=== PATIENT | male | born 1935 | race Caucasian/White ===

== ENCOUNTER 2021-12-02 14:51 | Emergency (ER) | payer MEDICARE, OTHER ==
[~2021-12-02] VITALS: Ht 175 cm; Wt 77.0 kg
--- NOTE | 2021-12-02 15:01 | ED Neurological Problem ---
General Stated Complaint: FALL Source: EMS Exam Limitations: clinical condition History of Present Illness Date Seen by Provider: Dec 02, 2021 Time Seen by Provider: 14:52 Initial Comments 84-year-old male with unknown past medical history coming in via EMS from his home which is an independent living geriatric area in which she was in the [facility] area after he fell. EMS reports there were no signs of trauma. He was lying down on a pillow on arrival and they had to completely assist him. He would not follow commands for them, would not speak, and had some right-sided facial droop. Reportedly, he normally walks around, talks, and is relatively normal. Unsure of any medications or allergies. Further elements of the history and physical were unable to be obtained. They had a family member number, Radha Finley, at [phone]. Glucose >100 for EMS with blood pressure around 120 systolic. Allergies and Home Medications Allergies Coded Allergies: No Allergy Information Available (Unverified , 12/02/21) Patient Home Medication List Home Medication List Reviewed: Yes Review of Systems Review of Systems Constitutional: no symptoms reported patient aphasic, unable to obtain ROS Past Gavqajc-Ltinrw-Nnvdqj Hx Past Medical History Surgery/Hospitalization HX: unknown but has linear scar on chest where a CABG could have been done Physical Exam Vital Signs Vital Signs - First Documented 12/02/21 14:55 Temp 35.8 Pulse 84 Resp 18 B/P (MAP) 124/47 (72) Pulse Ox 94 O2 Delivery Room Air O2 Flow Rate 2.00 Capillary Refill : Height, Weight, BMI Height: '" Weight: lbs. oz. kg; BMI Method: General Appearance: WD/WN, other (alert, moving left side, not following commands, groans when asked questions) HEENT: PERRL/EOMI, pharynx normal Neck: non-tender, other (c collar in place) Respiratory: chest non-tender, lungs clear, normal breath sounds, no respiratory distress, no accessory muscle use Cardiovascular: no edema, no murmur, irregularly irregular Gastrointestinal: normal bowel sounds, non tender, soft; No distended, No guarding, No rebound Back: normal inspection, no CVA tenderness Extremities: normal range of motion (passive on the right, active on the left), non-tender, normal inspection, no pedal edema, no calf tenderness Neurologic/Psychiatric: alert, facial droop (on right) Motor/Sensory: weak motor strength RUE, weak motor strength RLE Skin: normal color, warm/dry Lymphatic: no adenopathy Stroke Onset of Symptoms Date of Onset of Symptoms: Dec 02, 2021 Time of Symptom Onset: 12:00 Onset of Symptoms: Yes NIH Stroke Scale Assessment Select: Post CT Level of Consciousness: 0=Alert (0), Level of Consciousness- Questions: 2=Answer neither question (2), LOC Commands: 2=Performs neither task (2), Gaze: Partial Gaze Palsy (1), Visual [place]: 0=No visual loss (0), Facial Movement (Facial Paresis): 2=Partial paralysis (2), Motor Function- Arms Right: 3=No effort/gravity (3), Motor Function-Arms Left: 0=No drift (0), Motor Function-Legs Right: 3=No effort/gravity (3), Motor Function-Legs Left: 0=No drift (0), Limb Ataxia: 1=Present in one limb (1), Sensory: 1=Mild to Moderate loss (1), Best Language: 2=Severe aphasia (2), Dysarthria: 2=Severe dysarthria (2), Extinction & Inattention: 1=Visual,tactile,auditory (1), Total: 20 Stroke Thrombolytic Exclusion Age 18 or Over: Yes Acute intenal hemorrhage: No History of CVA: No Uncontrolled Coagulation Defec: No Intracranial Hemorrhage: No Severe Hypertension: No GI or Bleed: No Subarachnoid Hemorrhage: No Intracranial Neoplasm/Aneurysm: No Oral Anticoagulants: No Surgery or Trauma: No Puncture of Non-Compressible V: No Recent CPR: No Diabetic Hemorrhagic Retinopat: No Organ Biopsy: No Recent Obstetric Delivery: No Glucose: No Significant Hepatic Dysfunctio: No NIH Stoke Scale >22: No Bacterial Endocarditis: No Pericarditis: No Improving Symptoms: No Platelets: No TPA Contraindication: No IV - TPa Received IV - TPa Procedure Performed?: Yes IV - TPa Date: Dec 02, 2021 IV - TPa Time: 15:53 Progress/Results/Core Measures Results/Orders Lab Results Laboratory Tests Test 12/02/21 15:00 12/02/21 15:55 Range/Units White Blood Count 9.4 4.3-11.0 10^3/uL Red Blood Count 4.17 L 4.30-5.52 10^6/uL Hemoglobin 12.6 L 13.3-17.7 g/dL Hematocrit 38 L 40-54 % Mean Corpuscular Volume 92 80-99 fL Mean Corpuscular Hemoglobin 30 25-34 pg Mean Corpuscular Hemoglobin Concent 33 32-36 g/dL Red Cell Distribution Width 13.7 10.0-14.5 % Platelet Count 203 130-400 10^3/uL Mean Platelet Volume 9.6 9.0-12.2 fL Immature Granulocyte % (Auto) 0 % Neutrophils (%) (Auto) 62 42-75 % Lymphocytes (%) (Auto) 27 12-44 % Monocytes (%) (Auto) 8 0-12 % Eosinophils (%) (Auto) 2 0-10 % Basophils (%) (Auto) 0 0-10 % Neutrophils # (Auto) 5.8 1.8-7.8 10^3/uL Lymphocytes # (Auto) 2.6 1.0-4.0 10^3/uL Monocytes # (Auto) 0.8 0.0-1.0 10^3/uL Eosinophils # (Auto) 0.2 0.0-0.3 10^3/uL Basophils # (Auto) 0.0 0.0-0.1 10^3/uL Immature Granulocyte # (Auto) 0.0 0.0-0.1 10^3/uL Prothrombin Time 14.3 12.2-14.7 SEC INR Comment 1.1 0.8-1.4 Activated Partial Thromboplast Time 29 24-35 SEC Sodium Level 137 135-145 MMOL/L Potassium Level 4.5 3.6-5.0 MMOL/L Chloride Level 99 98-107 MMOL/L Carbon Dioxide Level 24 21-32 MMOL/L Anion Gap 14 5-14 MMOL/L Blood Urea Nitrogen 21 H 7-18 MG/DL Creatinine 1.12 0.60-1.30 MG/DL Estimat Glomerular Filtration Rate 64 BUN/Creatinine Ratio 19 Glucose Level 110 H 70-105 MG/DL Calcium Level 9.6 8.5-10.1 MG/DL Corrected Calcium 9.7 8.5-10.1 MG/DL Total Bilirubin 0.4 0.1-1.0 MG/DL Aspartate Amino Transf (AST/SGOT) 19 5-34 U/L Alanine Aminotransferase (ALT/SGPT) 13 0-55 U/L Alkaline Phosphatase 78 40-136 U/L Troponin I < 0.30 <0.30 NG/ML Total Protein 6.7 6.4-8.2 GM/DL Albumin 3.9 3.2-4.5 GM/DL Urine Color YELLOW Urine Clarity CLEAR Urine pH 7.0 5-9 Urine Specific [place] 1.010 L 1.016-1.022 Urine Protein NEGATIVE NEGATIVE Urine Glucose (UA) NEGATIVE NEGATIVE Urine Ketones NEGATIVE NEGATIVE Urine Nitrite NEGATIVE NEGATIVE Urine Bilirubin NEGATIVE NEGATIVE Urine Urobilinogen 0.2 < = 1.0 MG/DL Urine Leukocyte Esterase NEGATIVE NEGATIVE Urine RBC (Auto) TRACE-I H NEGATIVE Urine RBC 5-10 H /HPF Urine WBC RARE /HPF Urine Squamous Epithelial Cells RARE /HPF Urine Crystals NONE /LPF Urine Bacteria TRACE /HPF Urine Casts NONE /LPF Urine Mucus NEGATIVE /LPF Urine Culture Indicated NO My Orders Orders - DISHA CHANDLER MD Cbc With Automated Diff (12/02/21 14:54) Protime With Inr (12/02/21 14:54) Partial Thromboplastin Time (12/02/21 14:54) Comprehensive Metabolic Panel (12/02/21 14:54) Troponin I Fs (12/02/21 14:54) Ua Culture If Indicated (12/02/21 14:54) Chest 1 View Ap/Pa Only (12/02/21 14:54) Ekg Tracing (12/02/21 14:54) Accucheck Stat ONCE (12/02/21 14:54) Ed Iv/Invasive Line Start (12/02/21 14:54) Ed Iv/Invasive Line Start (12/02/21 14:54) Vital Signs Stroke Patient Q15M (12/02/21 14:54) Ct Head Wo-R/O Stroke (12/02/21 14:54) O2 (12/02/21 14:54) Intake & Output ,, (12/02/21 14:54) Monitor-Rhythm Ecg Trace Only (12/02/21 14:54) Dysphagia Screening Tool Q10MX1 (12/02/21 14:54) Ct Cervical Spine Wo (12/02/21 15:01) Tenecteplase (Tnkase) (12/02/21 15:40) Vital Signs Stroke Patient Q15M (12/02/21 15:42) Dysphagia Screening Tool Q10MX1 (12/02/21 15:42) Post Thrombolytic Adminstratio (12/02/21 15:42) Tenecteplase (Tnkase) (12/02/21 15:45) Medications Given in ED Current Medications Medications Dose Ordered Sig/[place] Route Start Time Stop Time Status Last Admin Dose Admin Tenecteplase 50 mg STK-MED ONCE IV 12/02/21 15:40 12/02/21 15:43 DC 12/02/21 15:53 50 MG Vital Signs/I&O 12/02/21 12/02/21 12/02/21 12/02/21 14:55 14:55 15:53 16:38 Temp 35.8 Pulse 84 86 76 Resp 18 18 B/P (MAP) 124/47 (72) 110/65 117/51 Pulse Ox 94 94 93 O2 Delivery Room Air Nasal Cannula Nasal Cannula O2 Flow Rate 2.00 2.00 Progress Progress Note : Progress Note 84-year-old male with above history coming in after he was found down. On arrival here blood pressure 120s over 80s. The patient was severely aphasic, left-sided gaze preference, would not move his right side at all, did not like his right toe, NIH initially conservatively was 23 (scored higher since he could not answer questions regarding sensation and impossible to tell ataxia due to severe weakness). We were unable to find out if he was on any blood thinners or had contraindications to tPA initially. Eventually got a hold of a family member that we went through the contraindications, and he has not had any recent surgery, no intracranial injury or bleeding/mass, no recent GI bleed, and no other contraindications. Essentially there were no contraindications other than his age and his initial NIH being >22. On repeat testing his NIH was 20. We then got a hold of where he lives and he was last seen normal at 12:00. I personally called stroke, and discussed the case with Dr. Reta Bojorquez who recommend giving the tenecteplase that we have here. I consented family verbally given we were running close to time and needed to get the medication and quickly. The patient will be transferred to for potential thrombectomy via helicopter. Patient began improving rapidly after tenecteplase infusion. Started lifting right arm, moving left foot some but not quite against gravity, started talking but is still very dysarthric and difficulty to understand. Facial droop and gaze preference also improved. Of note, the patient had incidental findings on his CT of a left parotid mass and calcification on his thyroid. I recommended ENT follow up as well as outpatient ultrasound of his thyroid and his family voiced understanding to this. Initial ECG Impression Date: Dec 02, 2021 Initial ECG Impression Time: 15:15 Initial ECG Rate: 83 Initial ECG Rhythm: A Fib/Flutter Comment Wide QRS with a right bundle branch block, no significant ST elevation, no prior EKG to compare to Diagnostic Imaging Diagonstic Imaging: Xray (chest), CT (head and c spine) Comments ADMIT DATE: 12/02/21/ER FS Draft Date of Exam:12/02/21 CHEST 1 VIEW AP/PA ONLY INDICATION: Fall. Injury. COMPARISON: None. FINDINGS: A single frontal radiographic view of the chest was obtained and demonstrates mild enlargement of the cardiac silhouette. The pulmonary vasculature is within normal limits. The lungs show low inspiratory volumes but are otherwise clear. There is no large effusion or pneumothorax. The osseous structures show no gross acute abnormalities. IMPRESSION: Borderline enlargement of the cardiac silhouette which may be exaggerated by portable technique. There is otherwise no evidence of failure or focal infiltrate. Dictated on workstation # [id number] Dict: 12/02/21 1509 Trans: 12/02/21 1512 [id number] Interpreted by: MARISA DEL CASTILLO MD Electronically signed by: [facility] [place], [place] NAME: KILO CASTANO [facility] REC#: [id number] PT STATUS: REG ER : 02/07/1937 PHYSICIAN: DISHA CHANDLER MD ADMIT DATE: 12/02/21/ER FS Draft Date of Exam:12/02/21 CT HEAD WO-R/O STROKE CLINICAL INDICATION: Patient with right-sided paralysis. EXAM: Axial CT scan of the brain performed without IV contrast. High-resolution axial CT brain images with sagittal and coronal reformations were also created. Auto Exposure Controls were utilized during the CT exam to meet ALARA standards for radiation dose reduction. COMPARISON: None. FINDINGS: There is no evidence of acute cerebral infarct, intracranial hemorrhage, or gross mass effect. There is atherosclerotic disease involving the [place] vessels. There is no definite dense vessel sign. There is diffuse brain parenchymal volume loss. There is diffuse patchy and confluent areas of low-attenuation white matter changes involving both cerebral hemispheres, bilateral basal ganglia regions, bilateral external capsule regions, and periventricular regions, likely representing chronic small vessel ischemic disease and leukoaraiosis. There are small chronic infarcts involving the left basal ganglia region and possibly right basal ganglia region. There is normal butt-white matter distinction. There is no significant midline shift or herniation. There is no evidence of hydrocephalus. The basal cisterns are unremarkable. There is a mass in the superficial portion of the left parotid gland which measures 10 mm x 9 mm in greatest axial dimension x 17 mm in craniocaudal dimension. Otherwise, the skull, extracranial soft tissue, and orbits are unremarkable. The paranasal sinuses are unremarkable. Temporal bones show no significant abnormality. IMPRESSION: 1: There is no dense vessel sign seen. There is no definite CT evidence of interval acute cerebral infarction, intracranial hemorrhage, or mass seen. The diffuse low attenuation changes throughout the brain parenchyma most significantly in the periventricular and basal ganglia/external capsule regions, may possibly obscure more subtle findings. If there is continued concern for acute cerebral infarction, MRI of the brain would better evaluate. 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 3: Possible chronic infarcts involving the left basal ganglia region. 4: There is a mass in the left parotid gland. Primary salivary gland neoplasm versus lymph node may be considered. Nonemergent ENT consultation is suggested. Results of this report, regarding brain parenchymal findings, was discussed with Dr. Disha Chandler via the telephone on 12/02/2021 at 1625 hours. Dictated on workstation # [id number] Dict: 12/02/21 1512 Trans: 12/02/21 1536 [facility] [id number] Interpreted by: JAVIER CASTILLO MD Electronically signed by: [facility] [place], [place] NAME: KILO CASTANO [facility] REC#: [id number] PT STATUS: REG ER : 02/07/1937 PHYSICIAN: DISHA CHANDLER MD ADMIT DATE: 12/02/21/ER FS Draft Date of Exam:12/02/21 CT CERVICAL SPINE WO CLINICAL INDICATION: Patient is status post fall, stroke. EXAM: Axial CT scan of the cervical spine performed without IV contrast. Sagittal and coronal reformatted images were created. COMPARISON: None. FINDINGS: There is no acute cervical spine fracture. There are multilevel vertebral body spurs and facet arthropathy. There is degenerative grade 1 anterolisthesis of C7 on T1. There is no pars defect. There is severe loss of disk space height seen throughout the cervical spine. There are hypertrophic posterior disk spurs at the C4-C5 and C5-C6 levels causing moderate central canal stenosis. There is moderate bilateral neuroforaminal narrowing involving the C5-C6 level and left C4-C5 neuroforaminal level. There is an 8 mm calcification within the right thyroid gland. There is a 1.0 cm x 0.8 cm x 1.7 cm (AP x Trans x CC) mass within the superficial portion of the left parotid gland. There is no other significant neck soft tissue abnormality. The visualized upper lung [place] are clear. IMPRESSION: 1: There is no acute cervical spine fracture. 2: There is multilevel cervical spine degenerative disease including grade 1 anterolisthesis of C7 on T1. 3: There is a 1.7 cm mass within the left parotid gland which may represent a lymph node or primary salivary gland neoplasm. A nonemergent ENT consultation is suggested. 4: There is an 8 mm calcification in the right thyroid gland. A nonemergent thyroid ultrasound would better evaluate. Dictated on workstation # [id number] Dict: 12/02/21 1517 Trans: 12/02/21 1535 [id number] Interpreted by: JAVIER CASTILLO MD Electronically signed by: Critical Care Note Critical Care Start Time: 14:52 Stop Time: 16:10 Total Time (minutes) 51 Progress patient presented with stroke like symptoms. Multiple family members needed to be contacted for history since he was aphasic. I personally discussed the case with the stroke neurologist. Patient received tenectaplase and needed close monitoring. All time spent was separate of procedures. Departure Impression Primary Impression: Ischemic stroke Disposition: XF [facility] Condition: Stable Admissions Decision to Admit/Date: Dec 02, 2021 Time/Decision to Admit Time: 15:30 Transfer Transfer Reason: Exceeds level of care (needs evaluations for thrombectomy) Time Spoke to Accepting Phy: 15:40 Transfer Progress Notes Accepted to [facility] by stroke neurologist Dr. Bojorquez Transfer Facility: [facility] Method of Transfer: DISHA Salinas MD Dec 02, 2021 15:01
[2021-12-02 15:03] LABS: BASOPHILS % (AUTO) 0 % (0-10); EOSINOPHILS # (AUTO) 0.2 10^3/uL (0.0-0.3); EOSINOPHILS % (AUTO) 2 % (0-10); HEMATOCRIT 38 % (40-54); HEMOGLOBIN 12.6 g/dL (13.3-17.7); LYMPHOCYTES # (AUTO) 2.6 10^3/uL (1.0-4.0); LYMPHOCYTES % (AUTO) 27 % (12-44); MEAN CORPUSCULAR HEMOGLOBIN 30 pg (25-34); MEAN CORPUSCULAR HGB CONC 33 g/dL (32-36); MEAN CORPUSCULAR VOLUME 92 fL (80-99); MEAN PLATELET VOLUME 9.6 fL (9.0-12.2); MONOCYTES # (AUTO) 0.8 10^3/uL (0.0-1.0); MONOCYTES % (AUTO) 8 % (0-12); NEUTROPHILS # (AUTO) 5.8 10^3/uL (1.8-7.8); NEUTROPHILS % (AUTO) 62 % (42-75); PLATELET COUNT 203 10^3/uL (130-400); WHITE BLOOD COUNT 9.4 10^3/uL (4.3-11.0)
--- NOTE | 2021-12-02 15:13 | Diagnostic Imaging Report ---
INDICATION: Fall. Injury. COMPARISON: None. FINDINGS: A single frontal radiographic view of the chest was obtained and demonstrates mild enlargement of the cardiac silhouette. The pulmonary vasculature is within normal limits. The lungs show low inspiratory volumes but are otherwise clear. There is no large effusion or pneumothorax. The osseous structures show no gross acute abnormalities. IMPRESSION: Borderline enlargement of the cardiac silhouette which may be exaggerated by portable technique. There is otherwise no evidence of failure or focal infiltrate. Dictated by: Dictated on workstation # [id number]
[2021-12-02 15:24] LABS: INR 1.1 (0.8-1.4); PROTHROMBIN TIME PATIENT 14.3 SEC (12.2-14.7)
[2021-12-02 15:29] LABS: BUN/CREATININE RATIO 19; CARBON DIOXIDE 24 MMOL/L (21-32); CHLORIDE 99 MMOL/L (98-107); CREATININE SERUM 1.12 MG/DL (0.60-1.30); GFR ESTIMATED 64; GLUCOSE 110 MG/DL (70-105); POTASSIUM 4.5 MMOL/L (3.6-5.0); SODIUM 137 MMOL/L (135-145)
[2021-12-02 15:30] LABS: ALANINE AMINOTRANSFERASE 13 U/L (0-55); ALBUMIN 3.9 GM/DL (3.2-4.5); ALKALINE PHOSPHATASE 78 U/L (40-136); BILIRUBIN,TOTAL 0.4 MG/DL (0.1-1.0); CALCIUM 9.6 MG/DL (8.5-10.1); TOTAL PROTEIN 6.7 GM/DL (6.4-8.2)
--- NOTE | 2021-12-02 15:36 | Diagnostic Imaging Report ---
CLINICAL INDICATION: Patient is status post fall, stroke. EXAM: Axial CT scan of the cervical spine performed without IV contrast. Sagittal and coronal reformatted images were created. COMPARISON: None. FINDINGS: There is no acute cervical spine fracture. There are multilevel vertebral body spurs and facet arthropathy. There is degenerative grade 1 anterolisthesis of C7 on T1. There is no pars defect. There is severe loss of disk space height seen throughout the cervical spine. There are hypertrophic posterior disk spurs at the C4-C5 and C5-C6 levels causing moderate central canal stenosis. There is moderate bilateral neuroforaminal narrowing involving the C5-C6 level and left C4-C5 neuroforaminal level. There is an 8 mm calcification within the right thyroid gland. There is a 1.0 cm x 0.8 cm x 1.7 cm (AP x Trans x CC) mass within the superficial portion of the left parotid gland. There is no other significant neck soft tissue abnormality. The visualized upper lung [place] are clear. IMPRESSION: 1: There is no acute cervical spine fracture. 2: There is multilevel cervical spine degenerative disease including grade 1 anterolisthesis of C7 on T1. 3: There is a 1.7 cm mass within the left parotid gland which may represent a lymph node or primary salivary gland neoplasm. A nonemergent ENT consultation is suggested. 4: There is an 8 mm calcification in the right thyroid gland. A nonemergent thyroid ultrasound would better evaluate. Dictated by: Dictated on workstation # [id number]
--- NOTE | 2021-12-02 15:37 | Diagnostic Imaging Report ---
CLINICAL INDICATION: Patient with right-sided paralysis. EXAM: Axial CT scan of the brain performed without IV contrast. High-resolution axial CT brain images with sagittal and coronal reformations were also created. Auto Exposure Controls were utilized during the CT exam to meet ALARA standards for radiation dose reduction. COMPARISON: None. FINDINGS: There is no evidence of acute cerebral infarct, intracranial hemorrhage, or gross mass effect. There is atherosclerotic disease involving the [place] vessels. There is no definite dense vessel sign. There is diffuse brain parenchymal volume loss. There is diffuse patchy and confluent areas of low-attenuation white matter changes involving both cerebral hemispheres, bilateral basal ganglia regions, bilateral external capsule regions, and periventricular regions, likely representing chronic small vessel ischemic disease and leukoaraiosis. There are small chronic infarcts involving the left basal ganglia region and possibly right basal ganglia region. There is normal butt-white matter distinction. There is no significant midline shift or herniation. There is no evidence of hydrocephalus. The basal cisterns are unremarkable. There is a mass in the superficial portion of the left parotid gland which measures 10 mm x 9 mm in greatest axial dimension x 17 mm in craniocaudal dimension. Otherwise, the skull, extracranial soft tissue, and orbits are unremarkable. The paranasal sinuses are unremarkable. Temporal bones show no significant abnormality. IMPRESSION: 1: There is no dense vessel sign seen. There is no definite CT evidence of interval acute cerebral infarction, intracranial hemorrhage, or mass seen. The diffuse low attenuation changes throughout the brain parenchyma most significantly in the periventricular and basal ganglia/external capsule regions, may possibly obscure more subtle findings. If there is continued concern for acute cerebral infarction, MRI of the brain would better evaluate. 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 3: Possible chronic infarcts involving the left basal ganglia region. 4: There is a mass in the left parotid gland. Primary salivary gland neoplasm versus lymph node may be considered. Nonemergent ENT consultation is suggested. Results of this report, regarding brain parenchymal findings, was discussed with Dr. Hever Lazo via the telephone on 12/02/2021 at 1625 hours. Dictated by: Dictated on workstation # [id number]
[2021-12-02] MEDS ORDERED: TENECTEPLASE 50 MG VIAL IV ONE ×2 (15:40→15:45)
[2021-12-02 16:24] LABS: CLARITY,URINE CLEAR; COLOR,URINE YELLOW
[2021-12-02 16:25] LABS: BACTERIA,URINE TRACE /HPF; BILIRUBIN,URINE NEGATIVE (NEGATIVE); GLUCOSE, URINE (UA) NEGATIVE (NEGATIVE); KETONES,URINE NEGATIVE (NEGATIVE); LEUKOCYTE ESTERASE ,URINE NEGATIVE (NEGATIVE); NITRITE,URINE NEGATIVE (NEGATIVE); PROTEIN,URINE NEGATIVE (NEGATIVE); SQUAMOUS EPITHELIAL CELL,UR RARE /HPF; WBC,URINE RARE /HPF
[2021-12-02 16:38] VITALS: BP 117/51
== END 2021-12-02 16:38 | disposition short-term general hospital (02) ==
LOC: ER FS 14:53 → EDBD 14:53 → ER FS 16:38
DX: I99.8 Other disorder of circulatory system (principal); Z95.1 Presence of aortocoronary bypass graft
CPT/HCPCS: 36415; 51702; 70450; 71045; 72125; 80053; 81000; 84484; 85025; 85610; 85730; 92977; 93005; 93041; 99291

== ENCOUNTER 2022-03-29 10:01 | Emergency (ER) | payer MEDICARE, OTHER ==
[~2022-03-29] VITALS: Ht 172.7 cm; Wt 72.1 kg
[2022-03-29] MEDS ORDERED: NS IV 1000 ML 1,000 ML IV STA (10:06)
--- NOTE | 2022-03-29 10:12 | ED EENT ---
History of Present Illness General Stated Complaint: EPISTAXIS Source: patient, EMS Exam Limitations: other (dementia and unable to answer history questions) History of Present Illness Date Seen by Provider: Mar 29, 2022 Time Seen by Provider: 10:01 Initial Comments 87-year-old male presenting by EMS with complaints of nosebleed off and on over the last few days. He does take Eliquis but he cannot remember why he takes it. He was unable to tell me anything about his history or medications. He stated that he could not remember. She is from [place]. He cares for himself but staff at the apartment building told EMS that the daughter was trying to get him into a detention for higher level of care. EMS reports his daughter is on her way here to help provide additional history and information. EMS acting as independent historian since the patient has dementia unable to provide history and answer questions reliably. When home health checked on him today they found him covered with blood and oozing from his nose. He had blood all over his apartment as well as his body. He was unable to provide any history and information as he just answered "I do not know" to every question. Both EMS as well as patient's daughter were utilized as independent historians since he was unable to provide history and informat ion. EMS reported that there was a lot of blood loss with blood in the bathroom, living room, bedroom. he had an oxygen concentrator and nasal cannula in the room but was not wearing it. His daughter reported that she goes to see him every day usually by 10 am and then spends the day with him to make sure he gets his medicines and eats. Then in the evening she gets him set up for bed and leaves around 5 pm and calls him later to remind him to take his medicine. His daughter notes that each morning in the last few days he has had some blood on his nose/face and seemed to be a little more each day but he was not having active bleeding while she was around him. He has history of atrial fibrillation, CHF, stroke in November 2021. She knows he takes Eliquis and at least 2 diuretics but unsure of the rest of his medicines. She does note he just got over Covid and it has made him weaker and having more problems from that. Timing/Duration: gradual (increasing nose bleeds over the last few days) Severity: severe (large blood loss per EMS report of what blood they saw in his apartment at [facility]) Location: nose Prearrival Treatment: no prearrival treatment Associated Symptoms: No cough; malaise Allergies and Home Medications Allergies Coded Allergies: No Allergy Information Available (Unverified , 12/02/21) Patient Home Medication List Home Medication List Reviewed: Yes Review of Systems Review of Systems Constitutional: chills Nose: clots, epistaxis (dried blood in his nares) Skin: lesions (sore on his bottom) Other Unable to obtain full ROS as patient has dementia and unable to reliably answer questions Past Muxjfmj-Nvdrbk-Esvchl Hx Patient Social History Tobacco Use?: No Use of E-Cig and/or Vaping dev: No Substance use?: No Alcohol Use?: No Past Medical History Surgery/Hospitalization HX: unknown but has linear scar on chest where a CABG could have been done, Atrial fibrillation, Stroke 11/2021, Hypertension, Hypercholesterolemia Physical Exam Vital Signs Vital Signs - First Documented 03/29/22 03/29/22 10:04 13:55 Temp 35.2 Pulse 104 Resp 18 B/P (MAP) 109/53 (71) Pulse Ox 98 O2 Delivery Room Air O2 Flow Rate 3.00 Height, Weight, BMI Height: '" Weight: lbs. oz. kg; 25.00 BMI Method: General Appearance: no apparent distress, other (covered with dried blood and dried blood in bilateral nares, appears chronically ill) Eyes: bilateral eye PERRL Nose: dried blood (Bilateral naris) Neck: non-tender, full range of motion, supple, normal inspection Cardiovascular: normal peripheral pulses, irregularly irregular Respiratory: chest non-tender, lungs clear, no respiratory distress, no accessory muscle use, decreased breath sounds Gastrointestinal: normal bowel sounds, non tender, soft, no pulsatile mass Neurologic/Psychiatric: alert; No oriented x 3 (oriented to self and time) Skin: pallor, other (cool to touch and covered with dried blood) Progress/Results/Core Measures Results/Orders Lab Results Laboratory Tests Test 03/29/22 10:24 Range/Units White Blood Count 13.9 H 4.3-11.0 10^3/uL Red Blood Count 2.16 L 4.30-5.52 10^6/uL Hemoglobin 5.4 *L 13.3-17.7 g/dL Hematocrit 17 *L 40-54 % Mean Corpuscular Volume 81 80-99 fL Mean Corpuscular Hemoglobin 25 25-34 pg Mean Corpuscular Hemoglobin Concent 31 L 32-36 g/dL Red Cell Distribution Width 17.1 H 10.0-14.5 % Platelet Count 261 130-400 10^3/uL Mean Platelet Volume 9.4 9.0-12.2 fL Immature Granulocyte % (Auto) 1 % Neutrophils (%) (Auto) 90 H 42-75 % Lymphocytes (%) (Auto) 5 L 12-44 % Monocytes (%) (Auto) 4 0-12 % Eosinophils (%) (Auto) 0 0-10 % Basophils (%) (Auto) 0 0-10 % Neutrophils # (Auto) 12.5 H 1.8-7.8 10^3/uL Lymphocytes # (Auto) 0.8 L 1.0-4.0 10^3/uL Monocytes # (Auto) 0.6 0.0-1.0 10^3/uL Eosinophils # (Auto) 0.0 0.0-0.3 10^3/uL Basophils # (Auto) 0.0 0.0-0.1 10^3/uL Immature Granulocyte # (Auto) 0.1 0.0-0.1 10^3/uL Neutrophils % (Manual) 89 % Lymphocytes % (Manual) 3 % Monocytes % (Manual) 5 % Band Neutrophils 3 % Platelet Estimate NORMAL Hypochromasia MODERATE Microcytosis MODERATE Crenated Cell MODERATE Prothrombin Time 22.7 H 12.2-14.7 SEC INR Comment 2.0 H 0.8-1.4 Activated Partial Thromboplast Time 33 24-35 SEC Sodium Level 130 L 135-145 MMOL/L Potassium Level 7.5 #*H 3.6-5.0 MMOL/L Chloride Level 94 L 98-107 MMOL/L Carbon Dioxide Level 11 L 21-32 MMOL/L Anion Gap 25 H 5-14 MMOL/L Blood Urea Nitrogen 153 *H 7-18 MG/DL Creatinine 5.02 H 0.60-1.30 MG/DL Estimat Glomerular Filtration Rate 10 BUN/Creatinine Ratio 30 Glucose Level 197 H 70-105 MG/DL Calcium Level 9.4 8.5-10.1 MG/DL Corrected Calcium 10.2 H 8.5-10.1 MG/DL Magnesium Level 3.1 H 1.6-2.4 MG/DL Total Bilirubin 0.6 0.1-1.0 MG/DL Aspartate Amino Transf (AST/SGOT) 24 5-34 U/L Alanine Aminotransferase (ALT/SGPT) 27 0-55 U/L Alkaline Phosphatase 75 40-136 U/L Troponin I 0.36 *H <0.30 NG/ML Pro-B-Type Natriuretic Peptide 50784.0 H <450.0 PG/ML Total Protein 5.1 L 6.4-8.2 GM/DL Albumin 3.0 L 3.2-4.5 GM/DL My Orders Orders - PHI LEBLANC MD Cbc With Automated Diff (03/29/22 10:06) Magnesium (03/29/22 10:06) Chest 1 View Ap/Pa Only (03/29/22 10:06) Ekg Tracing (03/29/22 10:06) Comprehensive Metabolic Panel (03/29/22 10:06) Protime With Inr (03/29/22 10:06) Partial Thromboplastin Time (03/29/22 10:06) O2 (03/29/22 10:06) Monitor-Rhythm Ecg Trace Only (03/29/22 10:06) Ed Iv/Invasive Line Start (03/29/22 10:06) Troponin I Fs (03/29/22 10:06) Probnp Fs (03/29/22 10:06) Ns Iv 1000 Ml (Sodium Chloride 0.9%) (03/29/22 10:06) Acetaminophen Tablet/Caplet (Tylenol T (03/29/22 10:50) Manual Differential (03/29/22 10:24) Ns Iv 500 Ml (Sodium Chloride 0.9%) (03/29/22 11:06) Ns Iv 500 Ml (Sodium Chloride 0.9%) (03/29/22 11:07) Insulin (Regular) Human (Novolin R (Per (03/29/22 11:07) D50w (Emergency) Syringe (Dextrose 50% 5 (03/29/22 11:07) Calc Gluc 1 Gm/100 Ml Ivpb (Calcium Gluc (03/29/22 11:07) Code/Resuscitation (03/29/22 11:49) Morphine Injection (Morphine Injection (03/29/22 12:06) Ondansetron Injection (Zofran Injectio (03/29/22 12:06) Medications Given in ED Current Medications Medications Dose Ordered Sig/[place]ell Route Start Time Stop Time Status Last Admin Dose Admin Sodium Chloride 500 ml @ ud STK-MED ONCE .ROUTE 03/29/22 11:06 03/29/22 11:08 DC 03/29/22 11:09 999 MLS/HR Vital Signs/I&O 03/29/22 03/29/22 03/29/22 10:04 10:04 13:55 Temp 35.2 Pulse 104 63 Resp 18 16 B/P (MAP) 109/53 (71) 94/52 Pulse Ox 98 98 O2 Delivery Room Air Room Air Nasal Cannula O2 Flow Rate 3.00 Admisison Planning May Need Admission (Planning): 10:05 Progress Progress Note #1: Progress Note Potential life-threatening conditions of acute anemia, acute CHF, renal failure, hepatic failure, pneumonia. Ordered labs to include a complete blood count, comprehensive metabolic profile, urinalysis, troponin to look for heart damage, proBNP to look for signs of heart failure, electrocardiogram to evaluate his cardiac rhythm and look for signs of ischemia or acute damage, placed on cardiac telemetry monitoring for further monitoring of his heart rate and rhythm, coagulating test to look for signs of cardiomyopathy contributing to his bleeding while on Eliquis. Administer normal saline 1 L IV fluid bolus for hydration and borderline hypoten will with his initial blood pressure with systolic at 82. Heart rate is irregularly irregular on exam. 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 Place on supplemental oxygen at 2 Lpm by nasal cannula into his mouth since he has blood clots in his naris. Progress Note #2: Time: 11:06 Progress Note 1053 lab called with critical result of anemia with Hemoglobin 5.4. Previous Hgb from November 2021 shoed 12.6 so he potentally had a drop of over 7 grams of Hemoglobin with his nose bleed on Eliquis. Has readings in atrial fibrillation with heart rate in the 80s to 90s on his cardiac telemetry monitoring. His blood pressure has been fluctuating between 70 systolic to 110 systolic. He remains awake and alert and although initially denied any pain except on a sore on his tailbone he has started to complain of generalized pain all over his body. His daughter had stepped out of the department to try and get copies of his DURABLE POWER OF LITHODUPLICATOR OPERATOR and see if he had advanced directive paperwork at his apartment. Will check with her since she gets back about how aggressive she wants to be with the low hemoglobin and at 1058 placed a page to the hospitalist Dr. Carl about possible admission for the acute anemia. On my personal interpretation and review of his 1 view Chest xray he has increased pulmonary vascular congestion and cardiomegaly. 1103 Lab called to inform us that patient's creatinine was 5.02 which is 5 times normal I would put in an acute renal failure. His potassium was elevated to 7.5 and there was no hemolysis to indicate that the potassium was falsely elevated from hemolyzed specimen. His troponin was just above the cutoff of <0.3 and came back at 0.36. His BUN was high at 153 to go along with combination of some dehydration as well as his get metabolizing blood that he may have swallowed with the nosebleed. [address] Carl for the hospitalist service about possible admission to [facility] however with and now also in acute renal failure and having electrolyte imbalance he would need a larger hospital with more services. 1126 for his elevated potassium and acute renal failure I ordered another 500 mL bolus of fluid normal saline through his IV. I also ordered insulin 10 units IV with 50 g of dextrose IV. 1 g of calcium gluconate to help with his elevated potassium and renal failure. After starting all these things the daughter did come back with copies of the DURABLE POWER OF LITHODUPLICATOR OPERATOR paperwork that she had on her phone. When reviewing the severity of his condition and trying to get direction of treatment if they wanted to be very aggressive and transfuse him and get him transferred emergently to a larger hospital with nephrology or kidney doctors as well as cardiology and pulmonary or if they wanted to keep him comfortable. The daughter that was here felt like he would do better to just be kept comfortable as it sounds like he is dying. She did speak with her sister and they agreed that they would prefer hospice care and keeping him comfortable rather than putting him through aggressive treatments that likely will not benefit him or change the ultimate outcome. Since he already sees [facility] she had requested that we check with [facility] hospice and will see if local detention such as [facility] might have bed availability for emergent admission to hospice care. 1208 With the decision to have him go on Hospice care instead of admit for aggressive interventions and treatments with little to no hope of improving his medical condition or adding quality time to his life, will place a DNR order in the chart. As he was intermittently crying out and complaining of all over body pain will g xenia Morphine 2 mg IV for pain along with Zofran 4 mg IV to prevent nausea and vomiting from swallowed blood as well as the narcotic pain medicine, morphine. Will discontinue cardiac telemetry monitoring in favor of making him more comfortable and limit the interventions such as blood pressures and cardiac telemetry. 1233 patient more comfortable after Morphine 2 mg IV and seemed to be able to rest now. Progress Note #3: Progress Note The nursing staff did get in touch with [facility] to see about initiating hospice and had reached out to staff at [facility] here in [place] to see about bed availability. They had called back stating that his insurance was such that it would not cover him being admitted to the detention about a 3-day medical admission to the hospital first. Updated his daughter and she was in touch with her siblings on her cell phone. She is continuing to check with [facility] about possible admit but would be private pay for the admit. His daughter asked about possible admit to the hospital and I advised her I was not sure if that would be covered either since we are not doing aggressive measures for his anemia, renal failure and blood loss from epistaxis on Eliquis. 1305 I discussed the patient with Dr. Carl for the hospitalist service at [facility]. Reviewed with him about additional findings on the patient since I spoke to him initially as well as the family's wish to do comfort measures and palliative hospice care. He advised that if they were unable to arrange or afford admission to [facility] that the patient could be admitted to the hospital and comfort measures. However that is also likely not to be covered by insurance. Certainly the admission would not qualify him for detention placement as he would not be a full admit and not be receiving active aggressive medical care but rather comfort measures and hospice care. Before I could update the patient's daughter about my conversation with Dr. Carl she had apparently finalize some plans and spoke with the detention so that the patient could be admitted. They requested an emergency admission order due to the rapid decline in his status and care. They completed this order and we faxed it back to [facility]. They called to say what room he would go to and EMS was contacted for transport. Initial ECG Impression Date: Mar 29, 2022 Initial ECG Impression Time: 10:28 Initial ECG Rate: 95 Initial ECG Rhythm: A Fib/Flutter Initial ECG Comparisson: Unchanged (Similar to tracing from 12/02/2021) Comment On my personal interpretation and review of his electrocardiogram shows atrial fibrillation with a heart rate of 95 bpm. He has occasional PVCs. He has a QT interval of 414 ms with a QTc interval 467 ms. There is a right bundle branch block present. No acute ST elevation. Overall appears similar to tracing from December 02, 2021. Diagnostic Imaging Diagonstic Imaging: Xray Plain Films/CT/US/NM/MRI: chest Comments [facility] [place], [place] NAME: GRACIE CASTANO [facility] REC#: [id number] PT STATUS: REG ER : 1933 PHYSICIAN: PHI LEBLANC MD ADMIT DATE: 03/29/22/ER FS Draft Date of Exam:03/29/22 CHEST 1 VIEW AP/PA ONLY Indication: Hypotension, epistaxis Frontal chest obtained at 10:30 a.m. and compared with 12/02/2021. There is cardiomegaly and poststernotomy change. There are chronic appearing increased interstitial markings. There is a small amount of pleural fluid on both sides. There is some mild right basilar atelectasis. Impression: Cardiomegaly and small bilateral pleural effusions. Mild right basilar atelectasis. Dictated on workstation # [id number] Dict: 03/29/22 1049 Trans: 03/29/22 1108 CVB [id number] Interpreted by: LUCY WILSON MD Electronically signed by: Reviewed: Reviewed by Me (1116 I reviewed Radiologist report on his 1 view Chest xray and was similar to my personal interpretation. ) Departure Impression Primary Impression: Acute blood loss anemia Additional Impressions: Epistaxis Hypotension Qualified Codes: I95.9 - Hypotension, unspecified Acute renal failure Qualified Codes: N17.9 - Acute kidney failure, unspecified Hyperkalemia Acute on chronic heart failure Qualified Codes: I50.9 - Heart failure, unspecified Disposition: 01 HOME, SELF-CARE Condition: Stable/Unchanged Departure-Patient Inst. Decision time for Depature: 13:45 Referrals: ANDREW ODONNELL DO (PCP/Family) Primary Care Physician Patient Instructions: Nosebleeds ED, Heart Failure ED, Kidney Failure (DC) Add. Discharge Instructions: Work with hospice and the staff at [facility] for comfort and supportive care. Your illnesses are severe and your organs are shutting down. Hospice will help keep your comfortable. Do not take your Eliquis any longer as it will cause further bleeding PHI LEBLANC MD Mar 29, 2022 10:12
[2022-03-29 10:38] LABS: BASOPHILS % (AUTO) 0 % (0-10); EOSINOPHILS % (AUTO) 0 % (0-10); LYMPHOCYTES # (AUTO) 0.8 10^3/uL (1.0-4.0); LYMPHOCYTES % (AUTO) 5 % (12-44); MEAN CORPUSCULAR HEMOGLOBIN 25 pg (25-34); MEAN CORPUSCULAR HGB CONC 31 g/dL (32-36); MEAN CORPUSCULAR VOLUME 81 fL (80-99); MEAN PLATELET VOLUME 9.4 fL (9.0-12.2); MONOCYTES # (AUTO) 0.6 10^3/uL (0.0-1.0); MONOCYTES % (AUTO) 4 % (0-12); NEUTROPHILS # (AUTO) 12.5 10^3/uL (1.8-7.8); NEUTROPHILS % (AUTO) 90 % (42-75); PLATELET COUNT 261 10^3/uL (130-400); WHITE BLOOD COUNT 13.9 10^3/uL (4.3-11.0)
[2022-03-29] MEDS ORDERED: ACETAMINOPHEN 325 MG TABLET PO STA (10:50)
[2022-03-29 10:53] LABS: HEMATOCRIT 17 % (40-54); HEMOGLOBIN 5.4 g/dL (13.3-17.7)
[2022-03-29 10:57] LABS: PROTHROMBIN TIME PATIENT 22.7 SEC (12.2-14.7)
[2022-03-29 11:05] LABS: POTASSIUM 7.5 MMOL/L (3.6-5.0)
[2022-03-29 11:06] LABS: BILIRUBIN,TOTAL 0.6 MG/DL (0.1-1.0); CALCIUM 9.4 MG/DL (8.5-10.1); CREATININE SERUM 5.02 MG/DL (0.60-1.30); MAGNESIUM 3.1 MG/DL (1.6-2.4); TOTAL PROTEIN 5.1 GM/DL (6.4-8.2)
[2022-03-29] MEDS ORDERED: NS IV 500 ML 500 ML ONE (11:06)
[2022-03-29] MEDS ORDERED: inSUlin (REGULAR) HUMAN 1 UNIT/0.01 ML (CHARGE PER UNIT) IV STA (11:07)
[2022-03-29] MEDS ORDERED: DEXTROSE 50% 50 ML (IMS) SYR IV STA (11:07)
[2022-03-29] MEDS ORDERED: CALC GLUC 1 GM/100 ML IVPB 100 ML IV STA (11:07)
[2022-03-29] MEDS ORDERED: NS IV 500 ML 500 ML IV STA (11:07)
--- NOTE | 2022-03-29 11:08 | Diagnostic Imaging Report ---
Indication: Hypotension, epistaxis Frontal chest obtained at 10:30 a.m. and compared with 12/02/2021. There is cardiomegaly and poststernotomy change. There are chronic appearing increased interstitial markings. There is a small amount of pleural fluid on both sides. There is some mild right basilar atelectasis. Impression: Cardiomegaly and small bilateral pleural effusions. Mild right basilar atelectasis. Dictated by: Dictated on workstation # [id number]
[2022-03-29 11:48] LABS: BAND NEUTROPHILS 3 %; HYPOCHROMASIA MODERATE; LYMPHOCYTES % (MANUAL) 3 %; MICROCYTOSIS MODERATE; MONOCYTES % (MANUAL) 5 %; NEUTROPHILS % (MANUAL) 89 %; PLATELET ESTIMATE NORMAL
[2022-03-29 11:49] LABS: CRENATED RBC MODERATE
[2022-03-29] MEDS ORDERED: ONDANSETRON 4 MG/2 ML (SDV) Z0FRAN IVP STA (12:06)
[2022-03-29] MEDS ORDERED: morphine INJ 10 MG/ML 1ML (SYR OR VIAL) IVP STA (12:06)
[2022-03-29 13:55] VITALS: BP 94/52
== END 2022-03-29 13:56 | disposition home or self-care (01) ==
LOC: EDUNIT# 10:01 → ER FS 10:02
DX: D62 Acute posthemorrhagic anemia (principal); I95.9 Hypotension, unspecified; I11.0 Hypertensive heart disease with heart failure; I50.9 Heart failure, unspecified; N17.9 Acute kidney failure, unspecified; E87.5 Hyperkalemia; Z79.01 Long term (current) use of anticoagulants; Z28.310 Unvaccinated for COVID-19
CPT/HCPCS: 36415; 71045; 80053; 83735; 83880; 84484; 85007; 85027; 85610; 85730; 93005; 93041